=== PATIENT | female | born 1955 | race Caucasian/White ===

== ENCOUNTER 2018-08-29 11:48 | Emergency (ER) | payer OTHER ==
--- NOTE | 2018-08-29 12:39 | RAD ---
Date of service: 08/29/2018 PROCEDURE: Left Knee Radiographs. HISTORY: Pain. COMPARISON: None. FINDINGS: BONES: Normal. No fracture. JOINTS: Joint spaces relatively preserved. No significant osteoarthritis however note made of tiny anterior superior patella enthesophyte. JOINT EFFUSION: Moderate-sized suprapatellar joint effusion. OTHER FINDINGS: None. IMPRESSION: No acute fractures. Moderate-sized suprapatellar joint effusion. Tiny anterior superior patella enthesophyte
[2018-08-29] MEDS ORDERED: Tramadol 25 mg PO STA (12:42)
--- NOTE | 2018-08-29 12:56 | C.PDOC ---
History Of Present Illness 63 year old female with a history of hypertension and diabetes presents to the ED for evaluation of sudden left knee pain for 10 days and swelling for the last 4-5 days. Patient reports prior knee injury 5-10 years ago, notes prior visit to PMD Dr. Kareem Wells who treated and prescribed pain medication with no improvement. She notes ambulating with a walker given to her by a friend. Denies fever, chills, numbness, tingling, and any other associated symptoms. Time Seen by Provider: 08/29/18 12:18 Chief Complaint (Nursing): Lower Extremity Problem/Injury History Per: Patient History/Exam Limitations: no limitations Onset/Duration Of Symptoms: Days, Sudden Onset Current Symptoms Are (Timing): Still Present Past Medical History Reviewed: Historical Data, Nursing Documentation, Vital Signs Vital Signs: Last Vital Signs Temp 98.9 F 08/29/18 12:03 Pulse 68 08/29/18 12:03 Resp 18 08/29/18 12:03 BP 128/82 08/29/18 12:03 Pulse Ox 97 08/29/18 12:03 - Medical History PMH: HTN Family History: States: Unknown Family Hx - Social History Hx Alcohol Use: No Hx Substance Use: No - Immunization History Hx Tetanus Toxoid Vaccination: No Hx Influenza Vaccination: Yes Hx Pneumococcal Vaccination: No Review Of Systems Except As Marked, All Systems Reviewed And Found Negative. Constitutional: Negative for: Fever, Chills Musculoskeletal: Positive for: Leg Pain (left knee. ) Neurological: Negative for: Weakness, Numbness, Incoordination Physical Exam - Physical Exam Appears: Non-toxic, No Acute Distress Skin: Warm (left knee is warm to the touch. ), Dry Head: Atraumatic, Normacephalic Eye(s): bilateral: Normal Inspection Neck: Normal ROM, Supple Extremity: Tenderness (to the left knee. ), No Calf Tenderness, Capillary Refill (less than 2 seconds to the left knee. ), No Deformity, Swelling (to the left knee. ) Pulses: Left Dorsalis Pedis: Normal, Right Dorsalis Pedis: Normal Neurological/Psych: Oriented x3, Normal Speech, Normal Cognition, Normal Motor, Normal Sensation, Normal Reflexes ED Course And Treatment O2 Sat by Pulse Oximetry: 97 (RA) Pulse Ox Interpretation: Normal - Other Rad LT Knee x-ray X-Ray: Viewed By Me, Read By Radiologist Interpretation: FINDINGS: BONES: Normal. No fracture. JOINTS: Joint spaces relatively preserved. No significant osteoarthritis however note made of tiny anterior superior patella enthesophyte. JOINT EFFUSION: Moderate-sized suprapatellar joint effusion. OTHER FINDINGS: None. IMPRESSION: No acute fractures. Moderate-sized suprapatellar joint effusion. Tiny anterior superior patella enthesophyte Medical Decision Making Medical Decision Making: Plan: -Motrin Ultram LT Knee X-ray Progress/Update: 1:45pm : Spoke with Dr. Wells, suggested any orthopedic could be contacted for the patients case. 1:50pm : Spoke with Dr. Chacon who will evaluated patient in his office Patient feeling better. Will d/c with Rx Disposition Counseled Patient/Family Regarding: Studies Performed, Diagnosis, Need For Followup, Rx Given - Disposition Referrals: Jina Rodriguez MD [Staff Provider] - Disposition: HOME/ ROUTINE Disposition Time: 14:08 Condition: STABLE Additional Instructions: Follow up with Dr. Posada (Orthopedics). Prescriptions: traMADol [Ultram] 25 mg PO TID #12 tab Instructions: Osteoarthritis Forms: [facility] (Luxembourgish), General Discharge Instructions - POA Present On Arrival: None - Clinical Impression Clinical Impression: Joint pain, Joint swelling, Arthritis - Scribe Statement The provider has reviewed the documentation as recorded by the Scribe (Tonia Latham) Provider Attestation: All medical record entries made by the Scribe were at my direction and personally dictated by me. I have reviewed the chart and agree that the record accurately reflects my personal performance of the history, physical exam, medical decision making, and the department course for this patient. I have also personally directed, reviewed, and agree with the discharge instructions and disposition.
[2018-08-29 15:03] VITALS: BP 153/88; PULSE 58; RESP 20; TEMP 98.3
[2018-08-29 21:54] VITALS: O2SAT 97
== END 2018-08-29 15:28 | disposition home or self-care (01) ==
LOC: C.ER 11:48
DX: M13.862 Other specified arthritis, left knee (principal); M25.562 Pain in left knee; M79.89 Other specified soft tissue disorders
CPT/HCPCS: 73562; 97116; 97161; 99284; G8978; G8979

== ENCOUNTER 2018-12-28 08:23 | Outpatient (CLI) | payer OTHER | END 2018-12-28 08:24 | disposition home or self-care (01) | LOC: C.PAT 08:23 | DX: N63.20 Unspecified lump in the left breast, unspecified quadrant (principal) ==

== ENCOUNTER 2019-01-18 09:38 | Day surgery (SDC) | payer OTHER ==
[2018-12-28 08:38] VITALS: BMI 25.7
[2019-01-18] MEDS ORDERED: HYDROmorphone 0.5 mg/0.5 ml ISec IVP PRN ×2 (11:20→14:05)
[2019-01-18] MEDS ORDERED: ceFAZolin 1 gm in NS 0 GM/0 ML BAG IVPB ONE (13:02)
[2019-01-18] MEDS ORDERED: Propofol 10 mg/ml Inj (20 ML) ONE (13:19)
[2019-01-18] MEDS ORDERED: Midazolam 2 MG/2 ML VIAL ONE (13:20)
[2019-01-18] MEDS ORDERED: Vancomycin 1 gm/D5W 200 ml 1 GM/200 ML BAG IVPB ONE (13:23)
[2019-01-18] MEDS: Bupivacaine 0.25% 20 ML INJ IJ ONE ×2 (13:39→13:48)
[2019-01-18] MEDS: Lidocaine/Epinephrine 1% 1:100000 10 ML IJ ONE ×2 (13:39→13:48)
--- NOTE | 2019-01-18 14:44 | PCM.SURG1 ---
Surgeon's Initial Post Op Note - Surgeon's Notes Surgeon: Dr. Aleman Subscription Agent: Dr. Zimmer, PGY 1 Type of Anesthesia: General Endo Pre-Operative Diagnosis: left breast mass Operative Findings: see operative report Post-Operative Diagnosis: left breast mass Operation Performed: left breast lumpectomy with needle localization Specimen/Specimens Removed: left breast mass with localizaiton wire Estimated Blood Loss: EBL {In ML}: 5 Blood Products Given: N/A Drains Used: No Drains Post-Op Condition: Good Date of Surgery/Procedure: 01/18/19 Time of Surgery/Procedure: 13:44
[2019-01-18 16:48] VITALS: BP 123/70; PULSE 78; RESP 18; TEMP 98; O2SAT 100
--- NOTE | 2019-01-18 16:52 | US ---
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 TECHNIQUE/FINDINGS: Following full discussion of risks and benefits of the procedure with the patient including alternatives, patient freely gave written consent. Timeout was called for ultrasound guided wire needle localization procedure for lesion at the 12 o'clock radius 2 cm from the nipple. The mass was plantarly identified sonographically in the same location including the clip within its core and overlying skin was marked for procedure. Following sonographic identification of the lesion in question, maximum sterile barrier protection was provided to the skin overlying the lesion. 2 cc cc of lidocaine was utilized for skin anesthesia and 5cc of lidocaine was utilized for deep tissue anesthesia. A 7.5 cm modified Kopan's needle-wire assembly was placed through the lesion using ultrasound control. The needle was subsequently removed leaving the wire through the lesion. Antiradial projection demonstrates the wire within the core of the lesion. The wire was properly secured in good position. Post procedure mammograms in medial-lateral and craniocaudal projections demonstrate the wire abutting the biopsy clip in both projections. Patient tolerated the procedure well with no complications. Postoperative specimen radiograph demonstrates with the wire and the surgical clip within the specimen with adequate margins surrounding them.. OTHER FINDINGS: None. IMPRESSION: Status post successful ultrasound-guided wire localization left breast mass.
--- NOTE | 2019-01-19 03:44 | OP ---
PROCEDURE DATE: 01/18/2019 PREOPERATIVE DIAGNOSIS: Left breast intraductal papilloma. POSTOPERATIVE DIAGNOSIS: Left breast intraductal papilloma. PROCEDURE DONE: Preoperative needle localization and left breast lumpectomy. SURGEON: Al Aleman MD ASSISTANTS: Margareth, PGY-1 resident and MAIAR Kline ANESTHESIA: General endotracheal tube anesthesia. ESTIMATED BLOOD LOSS: Around 10 mL. DRAIN: None. PATHOLOGY: Left breast lumpectomy specimen was sent for radiological confirmation as well as permanent pathology. INTRAOPERATIVE FINDINGS: The patient had a left breast 12 o'clock position lesion. DESCRIPTION OF THE PROCEDURE: On intraoperative steps, this is a 63-year-old female who was diagnosed with a left breast lesion due to intraductal papilloma, and the patient was consented for the preoperative needle localization and left breast lumpectomy. The patient was brought to the OR, placed supine on the operating table. After induction of anesthesia, the left breast and the axilla was prepped and draped in usual sterile fashion. A curvilinear incision was made in superior part of the breast. Upper and lower flap was created. Medial and lateral dissection was done. The guidewire was delivered into the wound and the superior dissection was done, inferior dissection was done, medial and lateral dissection was done to go deep up to the underlying pectoral muscle and lumpectomy specimen was completely removed and it was sent off the table for pathology as well as for the radiological confirmation, and the wound was irrigated. Wound was closed in two layers, the subcutaneous with 2-0 Vicryl, skin with 4-0 Monocryl, and dry sterile dressing was applied. The patient tolerated procedure well. Count of instrument and gauze was correct. There was no apparent complication. The patient was reversed from anesthesia and sent to the postanesthesia care unit in stable condition. Al Aleman MD
== END 2019-01-18 16:50 | disposition home or self-care (01) ==
LOC: C.SDS 09:38
PROVIDERS: ATTEND Surgery Surgical Critical Care
DX: D24.2 Benign neoplasm of left breast (principal); R92.0 Mammographic microcalcification found on diagnostic imaging of breast
CPT/HCPCS: 19285; 19301; 88307; J2250; J2704; J3010; J3370